=== PATIENT | female | born 1995 | race Caucasian/White ===

== ENCOUNTER 2016-09-18 04:44 | Emergency (ER) | payer OTHER ==
[~2016-09-18] VITALS: Ht 162.6 cm; Wt 63.0 kg
[2016-09-18 04:47] VITALS: TEMP 37; Ht 162.6 cm; Wt 63.0 kg
[2016-09-18] MEDS ORDERED: PHENAZOPYRIDINE HCL 200 MG TAB PO STA (05:08)
--- NOTE | 2016-09-18 05:12 | EMERGENCY ROOM VISIT NOTE ---
History Report prepared by Vickie: Jayden Cerda Under the Supervision of: Dr. Flaca Trejo D.O. First contact with patient: 04:47 Chief Complaint: URINARY SYMPTOMS Stated Complaint: URINARY TRACT/KIDNEY INFECTION,PAIN Nursing Triage Summary: woke one hour ago with pain, burning and bloody urine. hx UTI and kidney infections. pt reports symptoms usually progress fast. last UTI/kidney infection in June. History of Present Illness The patient is a 20 year old female who presents to the Emergency Room with complaints of constant urinary symptoms starting this morning. The patient states that she is having burning when she urinates, blood in her urine, and she has a constant urge to urinate. She additionally states that she had the chills earlier and diarrhea after dinner. The patient states that she had a kidney infection in June which was treated with antibiotics, and she states that this feels very similar. The patient denies having any other history of UTIs or kidney stones. The patient states that she is sexually active, and she is on control pills. She denies taking any Azo pills. The patient states that she could eat and drink well yesterday. The patient states that she recently had mono, and her last period was about a month ago. Source of History: patient Onset: this morning Position: other (urinary tract) Quality: burning Timing: constant Associated Symptoms: + chills, + diarrhea Review of Systems See HPI for pertinent positives & negatives. A total of 10 systems reviewed and were otherwise negative. Past Medical & Surgical Medical Problems: (1) Kidney infection Family History Patient reports no known family medical history. Social History Smoking Status: Never Smoker Marital Status: single Housing Status: lives with roommate Occupation Status: student Current/Historical Medications Scheduled Phenazopyridine Hcl (Pyridium), 1 TAB PO TID Sulfamethoxazole-Trimethoprim (Bactrim Ds 800MG/160MG), 1 TAB PO BID Allergies Coded Allergies: Penicillins (Verified Allergy, Intermediate, RASH, 09/18/16) Physical Exam Vital Signs Date Time Temp Pulse Resp B/P Pulse Ox O2 Delivery O2 Flow Rate FiO2 09/18/16 05:45 70 20 128/70 97 Room Air 09/18/16 04:47 37.0 72 19 153/85 100 Room Air Physical Exam HEENT: Head - normocephalic and atraumatic Pupils are equal, round, and reactive to light. Extraocular eye muscles are intact, and sclera are anicteric. Nose - moist nasal mucosa without discharge. Mouth - moist buccal mucosa. Oropharynx is nonerythematous and there is no tonsillar exudate or edema noted. Neck: Supple; no JVD, nuchal rigidity, cervical lymphadenopathy. Heart: Regular rate and rhythm. There is a normal S1 and S2 with no murmurs, clicks, or gallops appreciated. Lungs: Clear to auscultation bilaterally with no wheezes, rales, or rhonchi. Abdomen: Mild suprapubic abdominal pain with palpation. Soft, nondistended, with good bowel sounds. There are no palpable pulsatile masses or hepatosplenomegaly. There is no guarding, rigidity, or rebound noted. Extremities: No evidence of cyanosis, clubbing, or edema. There are easily palpable peripheral pulses. Skin: warm and dry with good turgor and no rashes. Medical Decision & Procedures Laboratory Results Test 09/18/16 05:05 Urine Color BROWN Urine Appearance CLOUDY (CLEAR) Urine pH 6.0 (4.5-7.5) Urine Specific [place] >= 1.030 (1.000-1.030) Urine Protein 2+ (NEG) Urine Glucose (UA) NEG (NEG) Urine Ketones NEG (NEG) Urine Occult Blood 3+ (NEG) Urine Nitrite NEG (NEG) Urine Bilirubin NEG (NEG) Urine Urobilinogen NEG (NEG) Urine Leukocyte Esterase NEG (NEG) Urine RBC >30 /hpf (0-4) Urine WBC >30 /hpf (0-5) Urine Epithelial Cells >30 /lpf (0-5) Urine Bacteria 1+ (NEG) Urine Test NEG (NEG) Laboratory results per my review. Medications Administered Medications (Trade) Dose Ordered Sig/Daily Route Start Time Stop Time Status Last Admin Dose Admin Phenazopyridine HCl (Pyridium Tab) 200 mg NOW STAT PO 09/18/16 05:08 09/18/16 05:09 DC 09/18/16 05:15 200 MG Trimethoprim/ Sulfamethoxazole (Septra Ds 800/ 160MG Tab) 1 tab NOW ONCE PO 09/18/16 05:15 09/18/16 05:16 DC 09/18/16 05:15 1 TAB Procedure Pyridium Tab, Septra Ds 800/ 160mg Tab ED Course 0457: Past medical records reviewed. The patient was evaluated in room B10. A complete history and physical exam was performed. A urine specimen was collected. 0508: Pyridium Tab 200mg PO 0515: Septra Ds 800/160mg tab 0537: Upon reevaluation, she is feeling pretty good. I discussed findings and results with her. She verbalized agreement of the treatment plan. She was discharged home. Medical Decision The patient is a 20 year old female who presents to the ED with urinary symptoms. Differential diagnosis includes cystitis, pyelonephritis, and kidney stone Urine is brown and cloudy, 2+ proteins, 3+ blood, greater than 30 RBC, greater than 30 WBC, 1+ Bacteria, negative This is a 20-year-old female patient with a sudden onset of urinary symptoms. She then developed hematuria. Her presentation seems consistent with acute hemorrhagic cystitis. She'll be treated with radium and Bactrim. The urine was sent for culture. She was told to return to the emergency department if the pain became intractable or she developed a fever or vomiting. Impression Primary Impression: Hemorrhagic cystitis Scribe Attestation The scribe's documentation has been prepared under my direction and personally reviewed by me in its entirety. I confirm that the note above accurately reflects all work, treatment, procedures, and medical decision making performed by me. Departure Information Dispostion Home / Self-Care Prescriptions Phenazopyridine Hcl (PYRIDIUM) 200 Mg Tab 1 TAB PO TID for 2 Days, #6 TAB Prov: Flaca Trejo D.OSkylar 09/18/16 Sulfamethoxazole-Trimethoprim (Bactrim Ds 800MG/160MG) 1 Tab Tab 1 TAB PO BID, #10 TAB Prov: Flaca Trejo D.OSkylar 09/18/16 Referrals No Doctor, Assigned (PCP) Forms HOME CARE DOCUMENTATION FORM, IMPORTANT VISIT INFORMATION Patient Instructions My [facility], UTI Additional Instructions Rest. Take plenty of clear liquids Bactrim - 1 tab. every 12 hours for 5 days Pyridium - 1 tab. every 8 hours for 2 days Return to the ER if you develop any fever or vomiting
[2016-09-18] MEDS ORDERED: SULFAMETHOXAZOLE/TRIMETHOPRIM DS 800/160MG TAB PO ONE (05:15)
[2016-09-18] MEDS ORDERED: PHEN-775 PO (05:31)
[2016-09-18] MEDS ORDERED: SULF800T23 PO (05:31)
[2016-09-18 05:41] LABS: MANUAL MICROSCOPIC REQUIRED? YES; URINE APPEARANCE CLOUDY (CLEAR); URINE BILIRUBIN NEG (NEG); URINE COLOR BROWN; URINE NITRITE NEG (NEG); URINE SPECIFIC GRAVITY >= 1.030 (1.000-1.030); UROBILINOGEN NEG (NEG)
[2016-09-18 05:43] LABS: REVIEW REQ? NO
[2016-09-18 05:45] VITALS: BP 128/70; PULSE 70; O2SAT 97
[2016-09-18 05:47] LABS: URINE RBC >30 /hpf (0-4)
[2016-09-18 05:48] LABS: URINE WBC >30 /hpf (0-5)
[2016-09-18 05:52] LABS: URINE BACTERIA 1+ (NEG)
--- NOTE | 2016-09-20 11:11 | Pharmacy Progress Note ---
ED Pharmacist Culture FollowUp Date of Service: Sep 20, 2016. Patient was sent home with a prescription for Bactrim DS 1 PO BID x 10 days, which should cover the E coli growing from the patient's URINE culture. No action required.
== END 2016-09-18 05:45 | disposition home or self-care (01) ==
LOC: C.EDB 04:45
DX: N30.90 Cystitis, unspecified without hematuria (principal); A49.8 Other bacterial infections of unspecified site